=== PATIENT | female | born 1965 | race Asian ===

== ENCOUNTER 2016-07-09 13:00 | Emergency (ER) | payer OTHER ==
[~2016-07-09] VITALS: Ht 162.6 cm; Wt 54.5 kg
[2016-07-09] MEDS ORDERED: CANA100T PO (13:07)
[2016-07-09] MEDS ORDERED: LOSA25TA21 PO (13:07)
[2016-07-09] MEDS ORDERED: METO-323 PO (13:07)
[2016-07-09] MEDS ORDERED: SITA25 PO (13:07)
[2016-07-09] MEDS ORDERED: METF500T4 PO (13:07)
[2016-07-09 13:11] LABS: GLUCOSE,POINT OF CARE 95 MG/DL (70-110)
[2016-07-09] MEDS ORDERED: ACETAMINOPHEN 325 MG TABLET PO ONE (15:00)
[2016-07-09 16:50] VITALS: BP 108/66
== END 2016-07-09 16:56 | disposition home or self-care (01) ==
LOC: EMS 13:02
DX: S20.212A Contusion of left front wall of thorax, initial encounter (principal); E11.9 Type 2 diabetes mellitus without complications; I10 Essential (primary) hypertension; V49.50XA Passenger injured in collision with unspecified motor vehicles in traffic accident, initial encounter; Y93.89 Activity, other specified; Y92.89 Other specified places as the place of occurrence of the external cause; Y99.8 Other external cause status
CPT/HCPCS: 82962; 99283